=== PATIENT | male | born 1990 | race Caucasian/White ===

== ENCOUNTER 2024-06-21 20:37 | Inpatient (IN) | payer SELFPAY ==
[~2024-06-21] VITALS: Ht 165.1 cm; Wt 69.0 kg
[2024-06-21 21:28] LABS: HEMATOCRIT. 41.7 % (42.0-52.0); HEMOGLOBIN. 13.8 g/dL (14.0-18.0); MEAN CORPUSCULAR HEMOGLOBIN 33.6 pg (28.0-32.0); MEAN CORPUSCULAR HGB CONC 33.1 g/dL (31.0-37.0); MEAN CORPUSCULAR VOLUME 101.5 fL (80.0-94.0); MEAN PLATELET VOLUME 7.2 fl (7.4-10.4); PLATELET 409 x1000/uL (130-400); RED BLOOD CELL COUNT 4.11 mill/uL (4.7-6.1); RED CELL DISTRIBUTION WIDTH 13.1 % (11.6-14.6)
[2024-06-21 21:31] LABS: DIFFERENTIAL COMMENT 1
[2024-06-21 21:37] LABS: CHLORIDE 110 mEq/L (98-107); POTASSIUM 3.3 mEq/L (3.5-5.1); SODIUM 144 mEq/L (136-145)
[2024-06-21 21:38] LABS: CARBON DIOXIDE 25 mEq/L (21-32)
[2024-06-21 21:43] LABS: CREATININE 0.6 mg/dL (0.6-1.3); GLUCOSE 94 mg/dL (70-105); UREA NITROGEN BLOOD < 5 mg/dL (9-23)
[2024-06-21 21:52] LABS: PLATELET ESTIMATE INCREASED
[2024-06-21 22:02] LABS: ETHANOL BLOOD 475 mg/dL (<10)
[2024-06-22] MEDS: MAGNESIUM 2 G PREMIX 50 ML IV ONE (00:22)
[2024-06-22] MEDS: FOLIC ACID 1 MG, THIAMINE HCL 100 MG, MVI, ADULT NO.1 10 ML in DEXTROSE 5% WATER 1,000 ML IV ONE (00:23)
[2024-06-22] MEDS ORDERED: ACETAMINOPHEN 325MG TABLET PO PRN ×2 (02:00)
[2024-06-22] MEDS ORDERED: MAGNESIUM/ALUMINUM HYDROXIDE/SIMETHICONE 30ML UDC PO PRN (02:00)
[2024-06-22] MEDS ORDERED: ONDANSETRON HCL 4MG/2ML INJ IV PRN (02:00)
[2024-06-22] MEDS ORDERED: LORAZEPAM 2MG/ML UD SYRINGE IV PRN (02:00)
[2024-06-22 02:05] VITALS: BP 104/59; PULSE 53; RESP 18; TEMP 35.8
[2024-06-22] MEDS: PANTOPRAZOLE SODIUM 40 MG/VIAL IV SCH (02:41)
[2024-06-22] MEDS: POTASSIUM CHLORIDE 20MEQ TABLET SR PO NR (02:41)
[2024-06-22 07:12] LABS: CHLORIDE 108 mEq/L (98-107); POTASSIUM 3.9 mEq/L (3.5-5.1); SODIUM 144 mEq/L (136-145)
[2024-06-22 07:13] LABS: CALCIUM 8.9 mg/dL (8.7-10.4); CARBON DIOXIDE 25 mEq/L (21-32)
[2024-06-22 07:18] LABS: CREATININE 0.6 mg/dL (0.6-1.3); GLUCOSE 104 mg/dL (70-105); UREA NITROGEN BLOOD < 5 mg/dL (9-23)
[2024-06-22 07:22] LABS: FOLIC ACID (FOLATE) SERUM > 20.00 ng/mL (>5.38); VITAMIN B12 SERUM 1008 pg/mL (211-911)
[2024-06-22 08:00] VITALS: BP 100/56; PULSE 65; RESP 19; TEMP 36.8; O2SAT 100
[2024-06-22 10:21] VITALS: BP 102/65; PULSE 74; TEMP 98.2; O2SAT 100
[2024-06-22 10:40] LABS: CLARITY URINE CLOUDY (CLEAR); COLOR URINE YELLOW (YELLOW); GLUCOSE URINE NEGATIVE (NEGATIVE); KETONES URINE TRACE (NEGATIVE); LEUKOCYTE ESTERASE URINE NEGATIVE (NEGATIVE); NITRITE URINE NEGATIVE (NEGATIVE); OCCULT BLOOD URINE NEGATIVE (NEGATIVE); PH URINE 5.5 (4.5-8.0); PROTEIN URINE NEGATIVE (NEGATIVE); SPECIFIC GRAVITY URINE 1.014 (1.005-1.030); UROBILINOGEN URINE 0.2 E.U./dL (0.2-1.0)
[2024-06-22 10:55] LABS: BACTERIA URINE NONE SEEN; RBC URINE 0-2 /hpf (0-2); SQUAMOUS EPITHELIAL CELL URINE RARE /lpf (RARE/1+); WBC URINE 0-2 /hpf (0-2); YEAST URINE NONE SEEN
[2024-06-22 10:56] LABS: MUCUS URINE 1+ /lpf (NONE/TRACE)
[2024-06-22 11:00] LABS: *AMPHETAMINES SCREEN URINE PRESUMPTIVE POSITIVE (NEGATIVE); *BARBITURATES SCREEN URINE NEGATIVE (NEGATIVE); *BENZODIAZEPINES SCREEN URINE NEGATIVE (NEGATIVE); *COCAINE SCREEN URINE NEGATIVE (NEGATIVE); METHADONE URINE SCREEN NEGATIVE (NEGATIVE); OPIATES URINE SCREEN NEGATIVE (NEGATIVE); PHENCYCLIDINE URINE SCREEN NEGATIVE (NEGATIVE)
[2024-06-22 11:01] LABS: CANNABINOID URINE SCREEN NEGATIVE (NEGATIVE); ECSTASY MDMA SCREEN URINE NEGATIVE (NEGATIVE)
[2024-06-22 11:30] LABS: HEPATITIS B SURFACE ANTIGEN NEGATIVE (Negative)
[2024-06-22 11:51] LABS: HEPATITIS C AB NON REACTIVE (Neg) (Negative)
[2024-06-22 12:00] VITALS: BP 98/58; PULSE 63; RESP 19; TEMP 36.8; O2SAT 99
[2024-06-23] MEDS ORDERED: THIAMINE HCL 100MG TABLET PO SCH (09:00)
[2024-06-23] MEDS ORDERED: FOLIC ACID 1MG TABLET PO SCH (09:00)
== END 2024-06-22 12:30 | disposition home or self-care (01) | DRG 52 ==
LOC: ER 20:37 → 6WST 06-22 00:07 → EDBEDREQTM 06-22 00:21 → EDBEDREQ 06-22 00:21
PROVIDERS: ADMIT Internal Medicine; ATTEND Internal Medicine
DX: G93.40 Encephalopathy, unspecified (principal); F10.929 Alcohol use, unspecified with intoxication, unspecified; Y90.8 Blood alcohol level of 240 mg/100 ml or more; Z79.899 Other long term (current) drug therapy
CPT/HCPCS: 36415; 80048; 80305; 80320; 81003; 82607; 82746; 83735; 85025; 86705; 87340; 99291; J2470; J3411; J3475; J3490; J7070; G0480